=== PATIENT | male | born 1940 | race Caucasian/White ===

== ENCOUNTER 2018-02-08 08:35 | Outpatient (CLI) | payer MEDICARE ==
[~2018-02-08] VITALS: Ht 182.9 cm; Wt 108.2 kg
--- NOTE | ~2018-02-08 | HEMODYNAMI ---
PATIENT:SATYA STROUD MEDICAL RECORD: [id number] : 36 LOCATION:[facility] ADMISSION DATE: 02/08/18 Generatedon:02/08/201814:08 Patient name: SATYA STROUD Patient #: [id number] SSN: : 1940 Date of study: 02/08/2018 Page: Of Hemodynamic Procedure Report Patient Data Patient Demographics Procedure consent was obtained First Name: SATYA Gender: Male Last Name: LUANNE : 1940 Patient #: [id number] Age: 77 year(s) Race: Unknown Additional ID: [id number] Contact details [address]: [address] [place] [address] State: [place] City: [place] Zip code: [address] Past Medical History Allergies: No known allergies Admission Admission Data Admission Date: 02/08/2018 Admission Time: 8:35 Lab Results Lab Result Date: 02/08/2018 Lab Result Time: 0:00 Biochemistry Name Units Result Min Max BUN mg/dl 18 --(---*)-- 7 18 Creatinine mg/dl 1.5 --(----)-* 0.6 1.3 CBC Name Units Result Min Max Hemoglobin g/dl 12.5 *-(----)-- 13.5 17.5 Procedure Procedure Types Cath Procedure Diagnostic Procedure C LHC w/Coronaries w/Grafts Sedation Charges Moderate Sedation up to 15 minutes PCI Procedure AMI/SVG/TOWER CLIMBER PTCA or Stent SVG-BMS/SANDRA Initial Procedure Description Procedure Date Procedure Date: 02/08/2018 Procedure Start Time: 13:41 Procedure End Time: 14:05 Procedure Staff Name Function Carloz Elizabeth RN Nurse Sarwat Salas MD Performing Physician Damir Huerta RT Scrub Sameera Castillo RT Monitor Procedure Data Cath Procedure Fluoroscopy Diagnostic fluoroscopy Total fluoroscopy Time: 7.6 time: 7.6 min min Diagnostic fluoroscopy Total fluoroscopy dose: 789 dose: 789 mGy mGy Contrast Material Contrast Material Type Amount (ml) Isovue 300 138 Entry Location Entry Primary Successful Side Size Upsize Upsize Entry Closure Succes sful Closure Location (Fr) 1 (Fr) 2 (Fr) Remarks Device Remarks Femoral Right 5 Fr 6 Fr Exoseal artery Long Estimated blood loss: 10 ml Diagnostic catheters Device Type Used For End Catheter Placement MULTIPACK Pigtail 5 Fr Procedure catheter MULTIPACK JL 4.0 5Fr Procedure catheter MULTIPACK 3DRC 5Fr Procedure catheter DIAGNOSTIC AR 2 MOD 5 Fr Procedure catheter ([id number]) DIAGNOSTIC AL 1 5Fr Procedure catheter ([id number]) Procedure Complications No complications Procedure Medications Medication Administration Route Dosage Oxygen etCO2 Nasal cannula 2 l/min Heparin Flush Bag added to field 2 bags (1000units/500ml NS) 0.9% NaCl I.V. 100 ml/hr Fentanyl I.V. 50 mcg Versed I.V. 1 mg Fentanyl I.V. 50 mcg Versed I.V. 1 mg Heparin Bolus I.V. 4000 units Integrilin (Bolus I.V. 9.5 ml 2mg/ml) Integrilin (Bolus I.V. 0.5 ml 2mg/ml) Plavix P.O. 600 mg Hemodynamics Rest HGB: 12.5 (g/dl) Heart Rate: 64 (bpm) Snapshots Pre Cath Intra NCS Post Cath Vital Signs Time Heart Resp SPO2 etCO2 NIBP (mmHg) Rhythm Pain Sedation Rate (ipm) (%) (mmHg) Status Level (bpm) 13:25:11 54 17 95 0 165/87(130) NSR 0 (11) 10(A) , No pain 13:29:43 56 17 96 0 161/101(124) NSR 0 (11) 10(A) , No pain 13:34:08 50 17 97 26.9 153/93(138) NSR 0 (11) 10(A) , No pain 13:38:36 52 16 100 26.9 146/88(113) NSR 0 (11) 10(A) , No pain 13:42:58 55 17 99 8.2 146/83(121) NSR 0 (11) 9(A) , No pain 13:47:18 74 16 99 8.9 133/89(103) NSR 0 (11) 9(A) , No pain 13:51:43 77 17 99 0 133/80(100) NSR 0 (11) 9(A) , No pain 13:56:03 62 16 98 0 125/77(107) NSR 0 (11) 9(A) , No pain 14:00:23 77 16 98 21.7 131/84(103) NSR 0 (11) 9(A) , No pain 14:03:50 62 17 98 0 127/80(125) NSR 0 (11) 9(A) , No pain Medications Time Medication Route Dose Verified Delivered Reason Notes Effectiveness by by 13:34:01 Oxygen etCO2 2 Sarwat Ley Per physician Nasal l/min Josue Elizabeth RN cannula 13:34:11 Heparin Flush added 2 Sarwat Ley used for Bag to bags Josue Elizabeth RN procedure (1000units/500ml field NS) 13:34:22 0.9% NaCl I.V. 100 Sarwat Carty Per physician ml/hr Josue Elizabeth RN 13:39:45 Fentanyl I.V. 50 Sarwat Carty for sedation mcg Josue Elizabeth RN 13:39:52 Versed I.V. 1 mg Sarwat Carty for sedation Josue Elizabeth RN 13:49:25 Fentanyl I.V. 50 Sarwat Carty for sedation mcg Josue Elizabeth RN 13:49:28 Versed I.V. 1 mg Sarwat Carty for sedation Josue Elizabeth RN 13:56:46 Heparin Bolus I.V. 4000 Sarwat Carty for units Josue Elizabeth RN anticoagulation 13:56:59 Integrilin I.V. 9.5 Sarwat Carty for (Bolus 2mg/ml) ml Josue Elizabeth RN antiplatelet therapy 13:57:06 Integrilin I.V. 0.5 Sarwat Carty for (Bolus 2mg/ml) ml Josue Elizabeth RN antiplatelet therapy 14:02:30 Plavix P.O. 600 Sarwat Carty for mg Josue Elizabeth RN antiplatelet therapy Procedure Log Time Note 13:00:30 Carloz Elizabeth RN sent for patient. Start room use. 13:06:31 Time tracking: Regular hours (M-F 7:00 - 5:00) 13:06:36 Plan of Care:Hemodynamics will remain stable., Cardiac rhythm will remain stable., Comfort level will be maintained., Respiratory function will remain adequate., Patient/ family verbilizes understanding of procedure., Procedure tolerated without complication., Recovers from procedure without complications.. 13:10:41 H&P Date Dictated: 02/05/2018 Within 30 days and on chart., H&P Addendum completed by physician on day of procedure. (MUST COMPLETE FOR ALL OUTPATIENTS). 13:11:05 Lab Result : Hemoglobin 12.5 g/dl 13:11:05 Lab Result : Creatinine 1.5 mg/dl 13:11:05 Lab Result : BUN 18 mg/dl 13:11:20 Patient allergic to No known allergies 13:17:21 Patient received from Pre/Post Procedure Room to CCL 3 Alert and oriented. Tansferred to table in Supine position. 13:17:23 Correct patient and procedure confirmed by team. 13:17:23 Warm blankets applied, and chao hugger turned on for patient comfort. 13:17:26 ECG and BP/O2 sat monitors applied to patient. 13:17:26 Signed procedure consent form obtained from patient. 13:23:53 Vital chart was started 13:30:14 Baseline sample Acquired. 13:30:15 Rhythm: atrial flutter 13:30:33 Full Disclosure recording started 13:30:34 Pre-op teaching completed and patient verbalized understanding. 13:30:34 Pre-procedure instructions explained to patient. 13:30:36 Family in patients room. 13:30:38 Patient NPO since Midnight. 13:30:39 Is the patient allergic to Iodine/contrast media? No. 13:30:42 Patient diabetic? No. 13:30:46 Previous problem with sedation/anesthesia? No ? 13:30:47 Snore? Yes 13:30:48 Sleep apnea? Yes 13:30:50 Deviated septum? No 13:30:52 Opens mouth fully? Yes 13:30:53 Sticks out tongue? Yes 13:30:55 Airway obstruction? No ? 13:31:00 Dentures? Yes IN TIGHT 13:31:07 Pre procedure: right dorsailis pedis pulse 2+ Normal; easily identifiable; not easily obliterated 13:31:11 Patient pain scale 0/10 ?. 13:32:15 IV patent on arrival in right antecubital with 0.9% NaCl at [facility]. 13:32:18 Lab results completed and on chart. 13:32:23 Right groin area was prepped with chlora-prep and draped in sterile fashion 13:32:27 Use device set Femoral Dx 13:32:28 Bag Decanter (2002S) opened to sterile field. 13:32:28 ACIST Syringe (59604) opened to sterile field. 13:32:29 ACIST Hand Control (71252) opened to sterile field. 13:32:30 ACIST Manifold (26116) opened to sterile field. 13:32:34 Tegaderm 4 x 4 (1626W) opened to sterile field. 13:32:41 Medline Cath Pack ([id number]) opened to sterile field. 13:32:42 DIAGNOSTIC WIRE .035 260cm J wire (360901) opened to sterile field. 13:32:44 DIAGNOSTIC Multipack 5Fr catheter set (YE5948) opened to sterile field. 13:32:46 SHEATH Prelude 5Fr 0.035 (RGG-4O-03-035) opened to sterile field. 13:34:01 Oxygen 2 l/min etCO2 Nasal cannula was administered by Carloz Elizabeth RN; Per physician; 13:34:11 Heparin Flush Bag (1000units/500ml NS) 2 bags added to field was administered by Carloz Elizabeth RN; used for procedure; 13:34:22 0.9% NaCl 100 ml/hr I.V. was administered by Carloz Elizabeth RN; Per physician; 13:38:50 Alarms reviewed by R. N. 13:38:51 Sharps counted by scrub and verified by R.N. 13:38:52 --------ALL STOP TIME OUT------ 13:38:53 Final Timeout: patient, procedure, and site verified with staff and physician. All members of the team are in agreement. 13:38:56 Right groin site verified by team. 13:38:58 Physical assessment completed. ASA score P 2 - A patient with mild systemic disease as per Sarwat Salas MD. 13:39:02 Sedation plan: IV Moderate Sedation Medication:Versed, Fentanyl 13:39:45 Fentanyl 50 mcg I.V. was administered by Carloz Elizabeth RN; for sedation; 13:39:52 Zero performed for pressure channel P1 13:39:52 Versed 1 mg I.V. was administered by Carloz Elizabeth RN; for sedation; 13:41:29 Procedure started. 13:41:32 Local anesthetic to right femoral artery with Lidocaine 2% by Sarwat Salas MD.INITIAL ACCESS ONLY 13:43:02 A 5 Fr sheath was inserted into the Right Femoral artery 13:43:09 A MULTIPACK Pigtail 5 Fr catheter was advanced over the wire and used for Procedure. 13:43:56 LV gram done using SIDHU 13:43:58 Injector settings: Ml/sec: 10, Volume: 20, 13:44:32 EF : 60 % 13:44:35 Catheter exchanged over wire. 13:45:03 A MULTIPACK JL 4.0 5Fr catheter was advanced over the wire and used for Procedure. 13:45:44 LCA angiography performed. 13:45:46 Catheter exchanged over wire. 13:45:55 A MULTIPACK 3DRC 5Fr catheter was advanced over the wire and used for Procedure. 13:47:34 TORRES to LAD angiography performed. 13:47:48 RCA angiography performed. 13:47:56 Catheter exchanged over wire. 13:48:06 A DIAGNOSTIC AR 2 MOD 5 Fr catheter ([id number]) was advanced over the wire and used for Procedure. 13:49:13 SVG to RCA angiography performed. 13:49:25 Fentanyl 50 mcg I.V. was administered by Carloz Elizabeth RN; for sedation; 13:49:28 Versed 1 mg I.V. was administered by Carloz Elizabeth RN; for sedation; 13:49:44 SVG to Diag angiography performed. 13:50:34 Catheter exchanged over wire. 13:50:54 INFLATOR Merit BasixCompak (QV0236) opened to sterile field. 13:50:56 CHOICE PT Extra Support 182cm wire ([id number]) opened to sterile field. 13:50:56 SHEATH 6FR Van (IPY802) opened to sterile field. 13:51:57 GUIDE 6FR AR 2.0 catheter (GU2JK78) opened to sterile field. 13:53:01 SHEATH 6FR ARROW 45cm (CL-47097) opened to sterile field. 13:53:16 Sheath upsized to a 6 Fr Long. 13:53:25 6 Fr AR 2 guide catheter was inserted over the wire 13:55:29 CHOICE ES 182 wire advanced. 13:55:30 Wire advanced across lesion. 13:56:37 Inflate balloon Inflation number: 1 A INTEGRITY RX 3.5 x 15 stent ([id number]) was prepped and advanced across the Aorta Left -> 1st Diag, then inflated to 15 LEON for 0:10 (min:sec). 13:56:46 Heparin Bolus 4000 units I.V. was administered by Carloz Elizabeth RN; for anticoagulation; 13:56:59 Integrilin (Bolus 2mg/ml) 9.5 ml I.V. was administered by Carloz Elizabeth RN; for antiplatelet therapy; 13:57:06 Integrilin (Bolus 2mg/ml) 0.5 ml I.V. was administered by Carloz Elizabeth RN; for antiplatelet therapy; 13:57:35 Stent catheter was removed intact over wire. 13:57:37 Wire removed. 13:57:54 GUIDE EXCHANGED OVER THE WIRE 13:58:18 A DIAGNOSTIC AL 1 5Fr catheter ([id number]) was advanced over the wire and used for Procedure. 13:59:32 SVG to OM angiography performed. 13:59:35 Catheter removed. 13:59:43 EXOSEAL 6Fr (EX600) opened to sterile field. 14:01:00 Sheath removed intact; hemostasis achieved with Exoseal to the Right Femoral artery. 14:01:02 Procedure ended.(Physican Out) 14:01:52 Fluoroscopy time 07.60 minutes. 14:02:02 Fluoroscopy dose: 789 mGy 14:02:02 Flurop Dose total: 789 14:02:08 Contrast amount:Isovue 300 138ml. 14:02:09 Sharps counted by scrub and verified by R.N. 14:02:23 Post-op/insertion site Right Femoral artery dressed using a 4 x 4 and Tegaderm. 14:02:28 Post right femoral artery:stable, soft, clean and dry 14:02:30 Plavix 600 mg P.O. was administered by Carloz Elizabeth RN; for antiplatelet therapy; 14:02:34 Post procedure: right dorsailis pedis pulse 2+ Normal; easily identifiable; not easily obliterated. 14:02:37 Post-procedure physical assessment completed. ASA score P 2 - A patient with mild systemic disease as per Sarwat Salas MD. 14:02:42 Post procedure rhythm: atrial flutter 14:02:45 Estimated blood loss: 10 ml 14:02:46 Post procedure instruction explained to patient.Patient verbalizes understanding. 14:02:47 Patient needs reinforcement of post procedure teaching. 14:03:14 Procedure type changed to Cath procedure, Diagnostic procedure, LHC, LHC w/Coronaries w/Grafts, Sedation Charges, Moderate Sedation up to 15 minutes, PCI procedure, AMI/SVG/TOWER CLIMBER PTCA or Stent, SVG-BMS/SANDRA Initial 14:04:50 Procedure and supply charges have been captured, reviewed, submitted and are correct. 14:04:53 Procedure Complication : No complications 14:04:55 Vital chart was stopped 14:04:56 See physician's report for complete and final results. 14:04:57 Report given to Pre/Post Procedure Room. 14:05:01 Patient transfered to Pre/Post Procedure Room with Bed. 14:05:03 Full Disclosure recording stopped 14:05:03 Procedure ended. 14:05:05 End room use (Document Last) Intervention Summary Intervention Notes Time ActionType Lesion and Equipment Action# Pressure Duration Attributes Used 13:56:37 Inflate Aorta Left INTEGRITY RX 1 15 00:10 balloon -> 1st Diag 3.5 x 15 stent ([id number]) Device Usage Item Name Manufacture Quantity Catalog Number Hospital Part Current M inimal Lot# / Charge Number Stock Stock Serial# Code ACIST Syringe Acist 1 90997 432182 091035 574572 2 0 (25514) Medical Systems Inc Bag Decanter Microtek 1 2001S 715728 07999 508141 5 (2001S) Medical Inc. ACIST Hand Acist 1 11383 177009 536717 700335 5 Control (88258) [employer] Systems Inc ACIST Manifold Acist 1 09650 907715 516658 524074 5 (85611) Medical Systems Inc Tegaderm 4 x 4 3M 1 1626W 316114 384023 281401 5 (1626W) Medline Cath Cardinal 1 [id number] 804891 38286 567679 5 Pack Health ([id number]) DIAGNOSTIC WIRE [facility] 1 352005 170615 930155 723712 3 0 .035 260cm J wire (753712) DIAGNOSTIC Cardinal 1 OC9290 572953 22917 521498 3 0 Multipack 5Fr Health catheter set (QO0620) SHEATH Prelude Merit 1 UZS-3S-52-035 477757 709238 754867 5 5Fr 0.035 Medical (HEQ-4Q-15-035) MULTIPACK Cardinal 1 891692 5 Pigtail 5 Fr Health catheter MULTIPACK JL Cardinal 1 430016 5 4.0 5Fr Health catheter MULTIPACK 3DRC Cardinal 1 765102 5 5Fr catheter Health DIAGNOSTIC AR 2 Cardinal 1 [id number] 797526 880799 068932 2 0 MOD 5 Fr Health catheter (483585L) INFLATOR Merit Merit 1 KX8219 155736 820748 580825 1 5 BasixBosideng Medical (CY4640) SHEATH 6FR Terumo 1 OUL396 090077 840617 442352 4 0 Van (DWY975) CHOICE PT Extra Windsor 1 [id number] 946151 981995 599492 5 Support 182cm Scientific wire ([id number]) GUIDE 6FR AR Medtronic 1 UQ3TC24 774684 16452 177564 1 2.0 catheter (QS1JK26) SHEATH 6FR Teleflex 1 CL-32284 480150 498310 433459 5 ARROW 45cm (CL-00724) INTEGRITY RX Medtronic 1 [id number] 618190 519548 567935 5 [id number] 3.5 x 15 stent ([id number]) DIAGNOSTIC AL 1 Cardinal 1 [id number] 981454 356411 157410 1 5 5Fr catheter Health (585760J) EXOSEAL 6Fr Cardinal 1 EX600 882390 481982 506148 1 0 (EX600) Health Signature Audit [place] Stage Time Signature Unsigned Intra-Procedure 02/08/2018 Sameera Castillo 2:08:02 PM RT(R) Signatures Monitor : Sameera Castillo Signature : RT Date : Time : [facility] [address] [place] [address]
--- NOTE | ~2018-02-08 | OP ---
PATIENT NAME: SATYA STROUD MEDICAL RECORD: [id number] :36 LOCATION:[facility] ADMISSION DATE: SURGEON: ROMEO KAT MD DATE OF OPERATION: 02/08/2018 PROCEDURES: 1. PTCA stent vein graft to LAD diagonal. 2. Left heart catheterization. 3. Selective coronary angiography. 4. Vein graft angiography. 5. TORRES angiography. 6. Left ventriculogram. INDICATION: Angina and coronary artery disease. PROCEDURE IN DETAIL: After informed consent was obtained, after a detailed description of risks, benefits as well as alternative therapies, the patient elected to proceed with angiogram and angioplasty. The right femoral area was prepped and draped in normal sterile fashion. Right femoral artery was cannulated via modified Seldinger technique with placement of 6-Slovak sheath. All catheters exchanged through this sheath. FINDINGS: The left ventriculogram was performed in standard 30-degree SIDHU view, reveals good cardiac wall motion throughout all segments. Overall ejection fraction estimated 60%. SELECTIVE CORONARY ANGIOGRAPHY: 1. Left main is closed. 2. Right coronary artery is closed. 3. TORRES to the LAD is patent. Distal LAD is patent, but diffusely diseased. 4. Vein graft to LAD diagonal is patent with 80% stenosis proximally in the shaft. 5. Vein graft to the left circumflex is patent. Distal circumflex diffusely diseased, but patent. 6. Vein graft to the right coronary is patent. Distal right coronary is patent. PTCA STENT OF THE VEIN GRAFT TO THE LAD DIAGONAL: The stent used was a 3.5 x 15-mm Integrity. Result was 0% residual stenosis. OVERALL IMPRESSION: Successful PTCA stent of the vein graft to the LAD diagonal going from 80% initial stenosis to 0% residual. TRANSINT:[id number] Voice Confirmation ID: [id number] DOCUMENT ID: [id number] ROMEO KAT MD at 2001 CC: [id number] DICTATION DATE: 02/08/18 1405 ELECTRICIAN OFFICE: 02/08/18 1415 DEP CLI 02/08/18 [place] [id number]
[2018-02-08] MEDS ORDERED: LYRICA75 MG PO (10:20)
[2018-02-08] MEDS ORDERED: FLOMAX0.4 MG PO (10:20)
[2018-02-08] MEDS ORDERED: K-DUR20 MEQ PO (10:21)
[2018-02-08] MEDS ORDERED: FUROSEMIDE20 MG PO (10:21)
[2018-02-08] MEDS ORDERED: CARTIA XT180 MG PO (10:22)
[2018-02-08] MEDS ORDERED: BETAPACE 80 MG80 MG PO (10:22)
[2018-02-08] MEDS ORDERED: CYMBALTA60 MG PO (10:23)
[2018-02-08] MEDS ORDERED: PROTONIX40 MG PO (10:23)
[2018-02-08] MEDS ORDERED: ZOCOR10 MG PO (10:23)
[2018-02-08] MEDS ORDERED: ABILIFY10 MG (10:24)
[2018-02-08] MEDS ORDERED: DIOVAN160 MG (10:25)
[2018-02-08] MEDS ORDERED: PROSCAR5 MG PO (10:25)
[2018-02-08 10:33] VITALS: BP 136/64; Ht 182.9 cm; Wt 108.2 kg
[2018-02-08 10:42] LABS: BASOPHILS 0.3 % (0-2); EOSINOPHILS 4.4 % (0-7); HEMOGLOBIN 12.5 g/dL (13.5-17.5); IMMATURE GRANULOCYTES 0.6 % (0-5); LYMPHOCYTES 48.1 % (15-50); MCH 27.7 pg (26.0-34.0); MCHC 32.1 g/dL (31.0-37.0); MCV 86.5 fL (80.0-100.0); MEAN PLATELET VOLUME 8.8 fL (7.4-10.4); MONOCYTES 8.5 % (2-11); NEUTROPHILS 38.1 % (40-80); PLATELET COUNT 178 10x3/uL (130-400); RBC 4.51 10x6/uL (4.20-6.10)
[2018-02-08 11:01] LABS: ANION GAP 11.9 mmol/L (8-16); CALCIUM 9.3 mg/dL (8.5-10.1); CARBON DIOXIDE 28.8 mmol/L (21.0-32.0); CREATININE - SERUM 1.5 mg/dL (0.6-1.3); POTASSIUM - SERUM 4.7 mmol/L (3.5-5.1)
== END 2018-02-08 18:15 | disposition home or self-care (01) ==
LOC: D.CATH 08:35
PROVIDERS: Internal Medicine Interventional Cardiology
DX: I25.119 Atherosclerotic heart disease of native coronary artery with unspecified angina pectoris (principal); I25.719 Atherosclerosis of autologous vein coronary artery bypass graft(s) with unspecified angina pectoris; Z01.812 Encounter for preprocedural laboratory examination

== ENCOUNTER 2018-09-20 08:48 | Outpatient (CLI) | payer MEDICARE ==
[~2018-09-20] VITALS: Ht 182.9 cm; Wt 112.7 kg
--- NOTE | ~2018-09-20 | HEMODYNAMI ---
PATIENT:SATYA STROUD MEDICAL RECORD: [id number] : 36 LOCATION:[facility] ADMISSION DATE: 09/20/18 Generatedon:09/20/201812:04 Patient name: SATYA STROUD Patient #: [id number] SSN: : 1940 Date of study: 09/20/2018 Page: Of Hemodynamic Procedure Report Patient Data Patient Demographics Procedure consent was obtained First Name: SATYA Gender: Male Last Name: LUANNE : 1940 Patient #: [id number] Age: 78 year(s) Race: Unknown Additional ID: [id number] Contact details [address]: [address] [place] [address] State: [place] City: [place] Zip code: [address] Past Medical History Allergies: No known allergies Admission Admission Data Admission Date: 09/20/2018 Admission Time: 8:48 Height (in.): 72 BSA: 2.34 (m2) Height (cm.): 182.88 BMI: 33.77 (kg/m2) Weight (lbs.): 249 Weight (kg.): 112.94 Lab Results Lab Result Date: 09/20/2018 Lab Result Time: 0:00 Biochemistry Name Units Result Min Max BUN mg/dl 24 --(----)-* 7 18 Creatinine mg/dl 1.8 --(----)-* 0.6 1.3 CBC Name Units Result Min Max Hemoglobin g/dl 11.7 *-(----)-- 13.5 17.5 Procedure Procedure Types Cath Procedure Diagnostic Procedure LHC LHC w/Coronaries w/Grafts Peripheral Cath Diagnostic Procedure Truck Service Manager Peripheral Procedures Cyhhv-Hvqgqxn-Ztp-Off Procedure Description Procedure Date Procedure Date: 09/20/2018 Procedure Start Time: 11:47 Procedure End Time: 12:02 Procedure Staff Name Function Sarwat Salas MD Performing Physician Flynn Soria RT Axle And Frame Mechanic Cindy Garg RT Monitor Stacie Mcguire RN Nurse Ashley Wlesh RT Scrub Erick Pickard RT Scrub Procedure Data Cath Procedure Fluoroscopy Diagnostic fluoroscopy Total fluoroscopy Time: 5.1 time: 5.1 min min Diagnostic fluoroscopy Total fluoroscopy dose: dose: 1237 mGy 1237 mGy Contrast Material Contrast Material Type Amount (ml) Isovue 300 107 Entry Location Entry Primary Successful Side Size Upsize Upsize Entry Closure Succes sful Closure Location (Fr) 1 (Fr) 2 (Fr) Remarks Device Remarks Femoral Right 5 Fr Exoseal artery Estimated blood loss: 10 ml Diagnostic catheters Device Type Used For End Catheter Placement MULTIPACK Pigtail 5 Fr Ventriculography catheter MULTIPACK JL 4.0 5Fr Procedure catheter MULTIPACK 3DRC 5Fr Procedure catheter DIAGNOSTIC AR MOD 5Fr Procedure Catheter ([id number]) Procedure Complications No complications Procedure Medications Medication Administration Route Dosage Oxygen etCO2 Nasal cannula 2 l/min Lidocaine 2% added to field 20 Heparin Flush Bag added to field 2 bags (1000units/500ml NS) 0.9% NaCl I.V. 100 ml/hr Versed I.V. 1 mg Fentanyl I.V. 50 mcg 0.9% NaCl I.V. 200 ml/hr Versed I.V. 1 mg Fentanyl I.V. 50 mcg Hemodynamics Rest BSA: 2.34 (m2) HGB: 11.7 (g/dl) O2 Consumption: Estimated: 270.14 (ml/min) O2 Co nsumption indexed: Estimated:115.44 (ml/min/m) Heart Rate: 73 (bpm) Pressure Samples Time Site Value (mmHg) Purpose Heart Use Rate(bpm) 11:48 LV 95/11,18 Snapshot 77 Gradients Valve Time Site Site Mean SEP/DFP Peak To Heart Use 1 2 (mmHg) (sec/min) Peak Rate (mmHg) (bpm) Aortic 11:49 LV AO 73 Snapshots Pre Cath Intra NCS Post Cath Vital Signs Time Heart Resp SPO2 etCO2 NIBP (mmHg) Rhythm Pain Sedation Rate (ipm) (%) (mmHg) Status Level (bpm) 11:30:34 63 20 96 32.1 137/94(121) A-Flutter 0 (11) 10(A) , No pain 11:34:54 65 19 97 32.9 141/80(115) A-Flutter 0 (11) 10(A) , No pain 11:39:14 69 15 96 7.6 138/82(107) A-Flutter 0 (11) 10(A) , No pain 11:43:34 76 14 96 32.9 130/79(113) A-Flutter 0 (11) 10(A) , No pain 11:47:42 73 14 94 27.5 122/74(98) A-Flutter 0 (11) 10(A) , No pain 11:51:54 82 12 96 20 133/85(99) A-Flutter 0 (11) 9(A) , No pain 11:56:10 86 14 95 16.1 132/86(99) A-Flutter 0 (11) 9(A) , No pain 12:00:26 81 14 95 0 132/80(108) A-Flutter 0 (11) 10(A) , No pain Medications Time Medication Route Dose Verified Delivered Reason Notes Eff ectiveness by by 11:28:33 Oxygen etCO2 2 Sarwat Buffie used for Nasal l/min Josue Mcguire RN procedure cannula 11:29:49 Lidocaine 2% added 20ml Sarwat Sarwat for local to vial Josue Salas MD anesthetic field 11:29:55 Heparin Flush added 2 Sarwat Sarwat used for Bag to bags Josue Salas MD procedure (1000units/500ml field NS) 11:30:19 0.9% NaCl I.V. 100 Sarwat Sarwat used for ml/hr Josue Salas MD procedure 11:45:28 Versed I.V. 1 mg Sarwat Buffie for Josue Mcguire RN sedation 11:45:33 Fentanyl I.V. 50 Sarwatsergio Sanfordie for mcg Josue Mcguire RN sedation 11:50:42 0.9% NaCl I.V. 200 Sarwat Buffie used for ml/hr Josue Mcguire RN procedure 11:56:12 Versed I.V. 1 mg Sarwat Buffie for Josue Mcguire RN sedation 11:56:15 Fentanyl I.V. 50 Sarwat Sanfordie for mcg Josue Mcguire RN sedation Procedure Log Time Note 11:27:36 Patient Height : 72 inches 11:27:40 Patient Weight : 249 lbs 11:28:16 Lab Result : BUN 24 mg/dl 11:28:17 Lab Result : Hemoglobin 11.7 g/dl 11:28:17 Lab Result : Creatinine 1.8 mg/dl 11:28:33 Oxygen 2 l/min etCO2 Nasal cannula was administered by Stacie Mcguire RN; used for procedure; 11:28:52 Diagnostic Cath status Elective 11::55 Flynn Soria RT(R) sent for patient. Start room use. 11:28:56 Time tracking: Regular hours (M-F 7:00 - 5:00) 11:29:01 Plan of Care:Hemodynamics will remain stable., Cardiac rhythm will remain stable., Comfort level will be maintained., Respiratory function will remain adequate., Patient/ family verbilizes understanding of procedure., Procedure tolerated without complication., Recovers from procedure without complications.. 11:29:18 Patient received from Pre/Post Procedure Room to CCL 2 Alert and oriented. Tansferred to table in Supine position. 11:29:19 Warm blankets applied, and chao hugger turned on for patient comfort. 11:29:20 Correct patient and procedure confirmed by team. 11:29:21 Signed procedure consent form obtained from patient. 11:29:22 ECG and BP/O2 sat monitors applied to patient. 11:29:23 Vital chart was started 11:29:24 Baseline sample Acquired. 11:29:26 Baseline sample Acquired. 11:29:32 Rhythm: atrial flutter 11:29:39 Full Disclosure recording started 11:29:47 H&P Date Dictated: 09/18/2018 Within 30 days and on chart., H&P Addendum completed by physician on day of procedure. (MUST COMPLETE FOR ALL OUTPATIENTS). 11:29:49 Lidocaine 2% 20ml vial added to field was administered by Sarwat Salas MD; for local anesthetic; 11:29:50 Pre-procedure instructions explained to patient. 11:29:55 Heparin Flush Bag (1000units/500ml NS) 2 bags added to field was administered by Sarwat Salas MD; used for procedure; 11:29:55 Family in patients room. 11:29:57 Patient NPO since Midnight. 11:30:06 Patient allergic to No known allergies 11:30:09 Is the patient allergic to Iodine/contrast media? No. 11:30:10 Was the patient premedicated? Yes 11:30:12 Is patient on blood thinner?No 11:30:13 Patient diabetic? No. 11:30:19 0.9% NaCl 100 ml/hr I.V. was administered by Sarwat Salas MD; used for procedure; 11:30:26 If diabetic: On Metformin? No 11:30:51 Snore? Yes 11:30:58 Sleep apnea? Yes 11:31:18 IV patent on arrival in left forearm with 0.9% NaCl at [facility]. 11:31:22 Lab results completed and on chart. 11:31:26 Right groin area was prepped with chlora-prep and draped in sterile fashion 11:31:27 Alarms reviewed by R. N. 11:31:27 Sharps counted by scrub and verified by R.N. 11:31:28 Physician paged 11:31:32 Use device set Femoral Dx 11:31:34 ACIST Syringe (77871) opened to sterile field. 11:31:35 Bag Decanter (2002S) opened to sterile field. 11:31:35 Medline Cath Pack ([id number]) opened to sterile field. 11:31:36 DIAGNOSTIC WIRE .035 260cm J wire (053033) opened to sterile field. 11:31:37 ACIST Hand Control (89799) opened to sterile field. 11:31:37 ACIST Manifold (00489) opened to sterile field. 11:31:38 DIAGNOSTIC Multipack 5Fr catheter set (AY6418) opened to sterile field. 11:31:40 SHEATH 5FR Aurora (MDD407) opened to sterile field. 11:41:02 Baseline sample Acquired. 11:41:11 Baseline sample Acquired. 11:42:07 Physician arrived 11:42:08 --------ALL STOP TIME OUT------ 11:42:08 Final Timeout: patient, procedure, and site verified with staff and physician. All members of the team are in agreement. 11:42:11 Right groin site verified by team. 11:42:55 Physical assessment completed. ASA score P 2 - A patient with mild systemic disease as per Sarwat Salas MD. 11:43:00 Sedation plan: IV Moderate Sedation Medication:Versed, Fentanyl 11:45:28 Versed 1 mg I.V. was administered by Stacie Mcguire RN; for sedation; 11:45:33 Fentanyl 50 mcg I.V. was administered by Stacie Mcguire RN; for sedation; 11:46:46 Zero performed for pressure channel P1 11:46:50 Zero performed for pressure channel P1 11:47:04 Procedure started. 11:47:08 Local anesthetic to right femoral artery with Lidocaine 2% by Sarwat Salas MD.INITIAL ACCESS ONLY 11:47:24 A 5 Fr sheath was inserted into the Right Femoral artery 11:47:29 J wire advanced. 11:48:24 A MULTIPACK Pigtail 5 Fr catheter was advanced over the wire and used for Ventriculography. 11:49:08 EF : 40 % 11:49:31 Abdominal angiogram w/ runoff was performed. 11:49:35 Left leg runoff performed. 11:49:37 Right leg runoff performed. 11:50:28 Catheter removed. 11:50:42 0.9% NaCl 200 ml/hr I.V. was administered by Stacie Mcguire RN; used for procedure; 11:53:17 A MULTIPACK JL 4.0 5Fr catheter was advanced over the wire and used for Procedure. 11:53:40 LCA angiography performed. 11:53:42 Catheter removed. 11:53:55 A MULTIPACK 3DRC 5Fr catheter was advanced over the wire and used for Procedure. 11:54:58 TORRES to LAD angiography performed. 11:55:45 RCA angiography performed. 11:56:12 Versed 1 mg I.V. was administered by Stacie Mcguire RN; for sedation; 11:56:15 Fentanyl 50 mcg I.V. was administered by Stacie Mcguire RN; for sedation; 11:56:18 Catheter removed. 11:56:25 A DIAGNOSTIC AR MOD 5Fr Catheter ([id number]) was advanced over the wire and used for Procedure. 11:56:29 RCA angiography performed. 11:59:24 SVG to Circ angiography performed. 11:59:29 SVG to RCA angiography performed. 11:59:51 Catheter removed. 11:59:53 EXOSEAL 5Fr (EX500) opened to sterile field. 12:00:05 Sheath removed intact; hemostasis achieved with Exoseal to the Right Femoral artery. 12:00:30 Procedure ended.(Physican Out) 12:00:41 Fluoroscopy time 05.10 minutes. 12:00:46 Fluoroscopy dose: 1237 mGy 12:00:46 Flurop Dose total: 1237 12:00:51 Contrast amount:Isovue 300 107ml. 12:00:54 Sharps counted by scrub and verified by R.N. 12:00:55 Insertion/operative site no bleeding no hematoma. 12:01:03 Post-op/insertion site Right Femoral artery dressed using a 4 x 4 and Tegaderm. 12:01:08 Post right femoral artery:stable 12:01:12 Post-procedure physical assessment completed. ASA score P 4 - A patient with severe systemic disease that is a constant threat to life as per Sarwat Salas MD. 12:01:27 Post procedure rhythm: unchanged. 12:01:29 Estimated blood loss: 10 ml 12:01:31 Post procedure instruction explained to patient.Patient verbalizes understanding. 12:01:50 Procedure type changed to Cath procedure, Diagnostic procedure, LHC, LHC w/Coronaries w/Grafts, Peripheral Cath Diagnostic Procedure, Truck Service Manager Peripheral Procedures, Eblra-Fwmorkd-Idi-Off 12:01:52 Procedure and supply charges have been captured, reviewed, submitted and are correct. 12:02:11 Procedure Complication : No complications 12:02:14 Vital chart was stopped 12:02:15 See physician's report for complete and final results. 12:02:17 Report given to Pre/Post Procedure Room. 12:02:21 Patient transfered to Pre/Post Procedure Room with Stretcher. 12:02:23 Procedure ended. 12:02:23 Full Disclosure recording stopped Device Usage Item Name Manufacture Quantity Catalog Hospital Part Current Minimal L ot# / Number Charge Number Stock Stock Serial# Code ACIST Acist 1 41167 268046 139674 592645 20 Syringe Medical (55136) Systems Inc Bag Microtek 1 976291 17976 989770 5 Decanter Medical Inc. () Medline Medline 1 [id number] 650035 68260 429589 5 Cath Pack ([id number]) DIAGNOSTIC [facility] 1 263095 338579 485316 435729 30 WIRE .035 260cm J wire (717270) ACIST Hand Acist 1 51771 682574 613376 661446 5 Control Medical (73322) Systems Inc ACIST Acist 1 64522 254571 952746 632955 5 Manifold Medical (58512) Systems Inc DIAGNOSTIC Cardinal 1 [id number] 813798 03207 517778 30 Simplilearn 5Fr catheter set (RB8167) SHEATH 5FR Terumo 1 OIC744 583528 492585 776798 5 Aurora (YUM412) MULTIPACK Cardinal 1 275868 5 Pigtail 5 Health Fr catheter MULTIPACK Cardinal 1 486449 5 JL 4.0 5Fr Health catheter MULTIPACK Cardinal 1 027525 5 3DRC 5Fr Health catheter DIAGNOSTIC Cardinal 1 [id number] 291590 745052 023525 15 AR MOD 5Fr Health Catheter (302191O) EXOSEAL 5Fr Cardinal 1 EX500 994578 645598 448713 10 (EX500) Health Signature Audit [place] Stage Time Signature Unsigned Intra-Procedure 09/20/2018 Cindy Garg 12:04:08 PM RT(R) Signatures Monitor : Cindy Garg Signature : RT Date : Time : [address] [address]
[~2018-09-20 08:48] MED LIST: ABILIFY10 MG; BETAPACE 80 MG80 MG PO; CARTIA XT180 MG PO; CYMBALTA60 MG PO; DIOVAN160 MG PO; FLOMAX0.4 MG PO; FUROSEMIDE20 MG PO; K-DUR20 MEQ PO; LYRICA75 MG PO; PROSCAR5 MG PO; PROTONIX40 MG PO; ZOCOR10 MG PO
[2018-09-20] MEDS ORDERED: NEURONTIN 300300 MG PO (09:34)
[2018-09-20] MEDS ORDERED: ATARAX 25 MG TA25 MG PO (09:34)
[2018-09-20] MEDS ORDERED: ALDACTONE25 MG PO (09:35)
[2018-09-20] MEDS ORDERED: CRESTOR40 MG PO (09:35)
[2018-09-20 09:52] VITALS: BP 121/70; Ht 182.9 cm; Wt 112.7 kg
[2018-09-20 10:26] LABS: BASOPHILS 0.4 % (0-2); EOSINOPHILS 3.9 % (0-7); HEMATOCRIT 36.4 % (42.0-54.0); HEMOGLOBIN 11.7 g/dL (13.5-17.5); IMMATURE GRANULOCYTES 2.2 % (0-5); LYMPHOCYTES 43.7 % (15-50); MCH 26.7 pg (26.0-34.0); MCHC 32.1 g/dL (31.0-37.0); MCV 82.9 fL (80.0-100.0); MEAN PLATELET VOLUME 8.2 fL (7.4-10.4); MONOCYTES 10.9 % (2-11); NEUTROPHILS 38.9 % (40-80); PLATELET COUNT 261 10x3/uL (130-400); RBC 4.39 10x6/uL (4.20-6.10); RDW 17.6 % (11.5-14.5); WBC 12.4 10x3/uL (4.8-10.8)
[2018-09-20 10:36] LABS: ANION GAP 15.6 mmol/L (8-16); CALCIUM 9.1 mg/dL (8.5-10.1); CARBON DIOXIDE 26.8 mmol/L (21.0-32.0); CREATININE - SERUM 1.8 mg/dL (0.6-1.3); POTASSIUM - SERUM 4.4 mmol/L (3.5-5.1)
[2018-09-20] MEDS ORDERED: XARELTO20 MG PO (12:14)
--- NOTE | 2018-09-20 12:42 | NUR ---
PT. SLEEPING. AROUSES TO VOICE. ALERT X4. DENIES PAIN. VSS. HR 85. BP 114/72. O2 SAT 95% ON 3LNC. RIGHT GROIN C/D/I. NO BLEEDING. NO HEMATOMA. ANDREW. LE FAINT PULSES. DOPPLERED. PULSES MARKED. TRYING TO VOID IN URINAL
--- NOTE | 2018-09-20 13:13 | NUR ---
PT. AWAKE AND ALERT. DENIES CP. C/O BACK PAIN. ASSISTED X2 NURSES AND TURNED WITH PILLOW BENEATH BACK. PT. WANTING TO GET OOB. EXPLAINED MULTIPLE TIMES HE NEEDS TO LIE FLAT POST PROCEDURE. FAMILY AT BS. VSS. RIGHT GROIN C/D/I. NO BLEEDING. NO HEMATOMA
--- NOTE | 2018-09-20 13:28 | NUR ---
FAMILY AT . [facility].A FLUTTER ON MONITOR. RIGHT GROIN C/D/I. 1 + PEDAL PULSES
--- NOTE | 2018-09-20 14:00 | NUR ---
HOB INCREASED. PT TOLERATING COFFEE. NO N/V
--- NOTE | 2018-09-20 14:19 | NUR ---
[PIV. REMOVED. DISCHARGE INSTRUCTIONS REVIEWED WITH PT. AND FAMILY. MED LIST REVIEWED. QUESTIONS ANSWERED. RIGHT GROIN C/D/I.
--- NOTE | 2018-09-20 14:31 | NUR ---
PT. PLACED IN . DISCHARGED HOME
--- NOTE | 2018-09-24 10:45 | OP ---
PATIENT NAME: SATYA STROUD MEDICAL RECORD: [id number] :36 LOCATION:D.[facility] ADMISSION DATE: SURGEON: ROMEO KAT MD DATE OF OPERATION: 09/20/2018 PROCEDURE: 1. Aortofemoral runoff. 2. Abdominal aortography. INDICATION: Claudication and peripheral vascular disease. PROCEDURE IN DETAIL: After informed consent was obtained and after a detailed description of risks, benefits as well as alternative therapies, the patient elected to proceed with angiogram and aortofemoral runoff. The right femoral area had a preexisting sheath from cardiac intervention. All catheters exchanged through this sheath. FINDINGS: Abdominal aortography was performed. The catheter was pulled down for aortofemoral runoff. Abdominal aortography reveals no significant abdominal aortic disease, no dissection or aneurysm formation. No renal artery stenosis. RIGHT LEG: A. Iliac: The common internal and external iliacs are tortuous, calcified, but no flow-limiting stenosis. B. Femoral system: The common and deep femoral are widely patent. Superficial femoral has moderate to severe calcification and diffuse disease. There is a total occlusion in the distal aspect of the superficial femoral. This reconstitutes in the popliteal. The popliteal is patent. It appears that there is severe diffuse disease of the infrapopliteal vessels, but preserved runoff to the posterior tibial and peroneal. LEFT LEG: A. Iliac: The common internal and external iliacs are tortuous, calcified, but no flow-limiting stenosis. B. Femoral system: The common and deep femoral are widely patent. Superficial femoral has moderate to severe calcification and diffuse disease. There is a total occlusion in the distal aspect of the superficial femoral. This reconstitutes in the popliteal. The popliteal is patent. It appears that there is severe diffuse disease of the infrapopliteal vessels, but preserved runoff to the posterior tibial and peroneal. OVERALL IMPRESSION: Severe diffuse disease of the SFA disease bilaterally as well as infrapopliteal structures bilaterally. Medical management of peripheral vascular disease is warranted. TRANSINT:[id number] Voice Confirmation ID: [id number] DOCUMENT ID: [id number] OPERATIVE REPORT [id number] LUANNESATYA HERRMANN ROMEO KAT MD at 1045 CC: [id number] DICTATION DATE: 09/20/18 1206 INSURANCE COUNSEL: 09/20/18 1257 DEP CLI 09/20/18 [facility] [address] [place] [address]
--- NOTE | 2018-09-24 10:45 | OP ---
PATIENT NAME: SATYA STROUD MEDICAL RECORD: [id number] :38 LOCATION:D.CAT ADMISSION DATE: SURGEON: ROMEO KAT MD DATE OF OPERATION: 09/20/2018 PROCEDURES: 1. Left heart catheterization. 2. Selective coronary angiography. 3. Vein graft angiography. 4. TORRES angiography. 5. Left ventriculogram. INDICATION: Angina and coronary artery disease. PROCEDURE IN DETAIL: After informed consent was obtained and after a detailed description of the risks, benefits as well as alternative therapies, the patient elected to proceed with angiogram and heart catheterization. The right femoral area was prepped and draped in normal sterile fashion. Right femoral artery was cannulated via modified Seldinger technique with placement of 6-Yoruba sheath. All catheters exchanged through this sheath. FINDINGS: The left ventriculogram was performed in standard 30-degree SIDHU view, reveals mild global hypokinesis, ejection fraction 40%. SELECTIVE CORONARY ANGIOGRAPHY: 1. Left main is with no significant angiographic disease. 2. Left anterior descending is closed. 3. Left circumflex is closed. 4. Right coronary artery is closed. 5. TORRES to the LAD is patent. Distal LAD is diffusely diseased and widely patent. 6. The vein graft to the circumflex is patent. Distal circumflex is diffusely diseased, but widely patent. 7. The right coronary artery vein graft is widely patent. Distal right coronary artery is widely patent. OVERALL IMPRESSION: Wide patency of all grafts. Center medical management and treatment of the atrial fibrillation. TRANSINT:[id number] Voice Confirmation ID: [id number] DOCUMENT ID: [id number] ROMEO KAT MD at 1045 CC: [id number] DICTATION DATE: 09/20/18 1206 RENEWAL SPECIALIST: 09/20/18 1256 DEP CLI 09/20/18 [place] [id number]
== END 2018-09-20 14:30 ==
LOC: D.CATH 08:48
PROVIDERS: Internal Medicine Interventional Cardiology
DX: I25.119 Atherosclerotic heart disease of native coronary artery with unspecified angina pectoris (principal); I48.91 Unspecified atrial fibrillation; I70.213 Atherosclerosis of native arteries of extremities with intermittent claudication, bilateral legs; Z01.812 Encounter for preprocedural laboratory examination

== ENCOUNTER 2018-10-03 14:24 | Observation (INO) | payer MEDICARE ==
[~2018-10-03] VITALS: Ht 182.9 cm; Wt 112.7 kg
[~2018-10-03 14:24] MED LIST changes: +ALDACTONE25 MG PO; +ATARAX 25 MG TA25 MG PO; +CRESTOR40 MG PO; +NEURONTIN 300300 MG PO; +XARELTO20 MG PO
--- NOTE | 2018-10-03 14:49 | NUR ---
TRANSFERED FROM ADMISSIONS BY W/Diane PENA TO ROOM. FAMILY AT BS. CALL LIGHT IN REACH. WILL CONT. PLAN OF CARE.
[2018-10-03] MEDS ORDERED: ZOCOR10 MG PO (15:10)
[2018-10-03 15:14] VITALS: BP 104/51; Ht 182.9 cm; Wt 112.7 kg
--- NOTE | 2018-10-03 15:51 | NUR ---
IV STARTED TO RIGHT ARM WITH 20 GAUGE CATH X 1 STICK AND FLUSHED WITH NS. LINE IS PATENT.
--- NOTE | 2018-10-03 19:30 | NUR ---
RESUMING PATIENT CARE. PATIENT RESTING COMFORTABLY IN BED. RESPIRATIONS ARE EVEN AND UNLABORED. NO S/S OF DISTRESS. NO C/O PAIN. CALL LIGHTWITHIN REACH. WILL CPOC.
[2018-10-03 20:00] VITALS: BP 108/50
[2018-10-04 00:50] VITALS: BP 109/55
[2018-10-04 05:35] VITALS: BP 137/70
[2018-10-04 08:17] VITALS: BP 125/54
--- NOTE | 2018-10-04 09:46 | MORECARE ---
CASE MANAGEMENT DISCHARGE SUMMARY PATIENT: SATYA STROUD UNIT: [id number] ADM DATE: 10/03/18 AGE: 78 : 38 SEX: M ROOM/BED: D.[facility] AUTHOR: DC LI PHYSICIAN: REFERRING PHYSICIAN: ROMEO KAT MD DATE OF SERVICE: 10/04/18 Discharge Plan Patient Name[facility]OU[facility] [facility] 1940 Planned Disposition: Home Anticipated Discharge Date: 10/04/18 Discharge Date: Expected LOS: 1 Initial Reviewer: [email or web address] Initial Review Date: 10/04/2018 Generated: 10/04/18 10:45 am Patient Name: SATYA STROUD Page [phone] at 0946 All edits/amendments must be made on the electronic document DICTATION DATE: 10/04/18944 BELLMAN: [place] 10/04/18944 RPT#: [id number] DC DATE: STATUS: ADM IN [facility] [address] [place] [address] END OF REPORT
--- NOTE | 2018-10-04 11:09 | NUR ---
IV AND TELEMETRY DCD. DC PLANS GIVEN. UNDERSTANDING VOICED. ESCORTED TO CAR BY W/C.
== END 2018-10-04 11:10 | disposition home or self-care (01) ==
LOC: D.M2 14:24 → OBSVTIME 14:24 → D.M2 10-04 11:10
PROVIDERS: ADMIT Internal Medicine Interventional Cardiology
DX: I48.91 Unspecified atrial fibrillation (principal); I25.10 Atherosclerotic heart disease of native coronary artery without angina pectoris

== ENCOUNTER 2018-10-17 09:46 | Outpatient (CLI) | payer MEDICARE ==
[~2018-10-17] VITALS: Ht 182.9 cm; Wt 108.6 kg
--- NOTE | ~2018-10-17 | HEMODYNAMI ---
PATIENT:SATYA STROUD MEDICAL RECORD: [id number] : 36 LOCATION:[facility] ADMISSION DATE: 10/17/18 Generatedon:10/17/201812:18 Patient name: SATYA STROUD Patient #: [id number] SSN: : 1940 Date of study: 10/17/2018 Page: Of Hemodynamic Procedure Report Patient Data Patient Demographics Procedure consent was obtained First Name: SATYA Gender: Male Last Name: LUANNE : 1940 Patient #: [id number] Age: 78 year(s) Race: Unknown Additional ID: [id number] Contact details Address: [address] [place] [address] State: [place] City: [place] Zip code: [address] Past Medical History Allergies: No known allergies Admission Admission Data Admission Date: 10/17/2018 Admission Time: 9:46 Procedure Procedure Types Cath Procedure Diagnostic Procedure Cardioversion External Procedure Description Procedure Date Procedure Date: 10/17/2018 Procedure Start Time: 12:08 Procedure End Time: 12:18 Procedure Staff Name Function Sarwat Salas MD Performing Physician Damir Huerta RT Monitor Laurie Madden RN Nurse Juan Aguiar CRNA Additional personnel Procedure Data Cath Procedure Fluoroscopy Diagnostic fluoroscopy Total fluoroscopy Time: 0 time: 0 min min Diagnostic fluoroscopy Total fluoroscopy dose: 0 dose: 0 mGy mGy Contrast Material Contrast Material Type Amount (ml) Isovue 300 0 Estimated blood loss: 0 ml Procedure Complications No complications Procedure Medications Medication Administration Route Dosage 0.9% NaCl I.V. 100 ml/hr Oxygen etCO2 Nasal cannula 2 l/min Refer to Anesthesia Notes for Sedation Medications Hemodynamics Rest Pre Cath Intra NCS Post Cath Vital Signs Time Heart Resp SPO2 etCO2 NIBP (mmHg) Rhythm Pain Sedation Rate (ipm) (%) (mmHg) Status Level (bpm) 12:06:27 68 18 97 0 110/74(101) NSR 0 (11) 10(A) , No pain 12:10:37 54 14 96 0 127/70(102) NSR 0 (11) 9(A) , No pain 12:14:26 55 12 99 0 111/69(92) NSR 0 (11) 10(A) , No pain Medications Time Medication Route Dose Verified Delivered Reason Notes Effectiv eness by by 12:06:08 0.9% NaCl I.V. 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 Start room use. 11:46:13 Time tracking: Regular hours (M-F 7:00 - 5:00) 11:46:17 Plan of Care:Hemodynamics will remain stable., Cardiac rhythm will remain stable., Comfort level will be maintained., Respiratory function will remain adequate., Patient/ family verbilizes understanding of procedure., Procedure tolerated without complication., Recovers from procedure without complications.. 11:56:13 Patient arrived from Pre/Post Procedure Room to CCL 3. Patient remains on bed/stretcher for procedure. 11:56:14 Warm blankets applied, and chao hugger turned on for patient comfort. 11:56:15 Correct patient and procedure confirmed by team. 11:56:16 Signed procedure consent form obtained from patient. 11:56:17 ECG and BP/O2 sat monitors applied to patient. 12:00:28 Quick Combo opened to sterile field. 12:00:43 Juan Aguiar CRNA present and monitoring patient for TIVA. 12:05:07 Vital chart was started 12:05:55 Rhythm: atrial fibrillation 12:06:08 0.9% NaCl 100 ml/hr I.V. was administered by Laurie Madden RN; used for procedure; 12:06:09 H&P Date Dictated: 10/15/2018 Within 30 days and on chart., H&P Addendum completed by physician on day of procedure. (MUST COMPLETE FOR ALL OUTPATIENTS). 12:06:10 Pre-procedure instructions explained to patient. 12:06:10 Pre-op teaching completed and patient verbalized understanding. 12:06:14 Family in patients room. 12:06:15 Patient NPO since Midnight. 12:06:16 Is the patient allergic to Iodine/contrast media? No. 12:06:19 Is patient on blood thinner?Yes 12:06:25 Oxygen 2 l/min etCO2 Nasal cannula was administered by Juan Aguiar CRNA; used for procedure; 12:06:32 ACC The patient was administered the following blood thiners within the last 24 hours: Xarelto 12:06:34 Patient diabetic? No. 12:06:36 Previous problem with sedation/anesthesia? No ? 12:06:37 Snore? Yes 12:06:38 Refer to Anesthesia Notes for Sedation Medications was administered by Juan Aguiar CRNA; for sedation; 12:06:38 Sleep apnea? Yes 12:06:39 Deviated septum? No 12:06:39 Opens mouth fully? Yes 12:06:40 Sticks out tongue? Yes 12:06:41 Airway obstruction? No ? 12:06:53 Dentures? No ? 12:07:07 Patient pain scale 0/10 ?. 12:07:14 IV patent on arrival in right forearm with 0.9% NaCl at [facility]. 12:07:16 Lab results completed and on chart. 12:07:23 Alarms reviewed by Dawson Ellis 12:07:25 --------ALL STOP TIME OUT------ 12:07:26 Final Timeout: patient, procedure, and site verified with staff and physician. All members of the team are in agreement. 12:07:40 Fire Safety Assessment: C--Open oxygen or nitrous oxide is being used. 12:07:43 Physical assessment completed. ASA score P 3 - A patient with severe systemic disease as per Sarwat Salas MD. 12:07:47 Sedation plan: TIVA Medication:Propofol 12:08:02 Procedure started. 12:08:03 Full Disclosure recording started 12:08:04 Quick combo pads placed on patients chest and back. 12:08:08 Defibrillator synced and charged to 275 Joules. 12:08:10 Shock delivered. 12:08:24 Patient cardioverted to sinus rhythm . 12:08:28 Procedure ended.(Physican Out) 12:10:24 Fluoroscopy time 00.00 minutes. :: Fluoroscopy dose: 0 mGy 12::26 Flurop Dose total: 0 12:10:29 Contrast amount:Isovue 300 0ml. 12:10:50 Post Procedure Pulses reassessed and unchanged 12:10:57 Post-procedure physical assessment completed. ASA score P 3 - A patient with severe systemic disease as per Sarwat Salas MD. 12:11:09 Post procedure rhythm: sinus rhythm 12:11:11 Estimated blood loss: 0 ml 12:11:12 Post procedure instruction explained to patient.Patient verbalizes understanding. 12:13:02 Patient needs reinforcement of post procedure teaching. 12:13:07 Procedure Complication : No complications 12:17:16 Vital chart was stopped 12:17:16 See physician's report for complete and final results. 12:17:18 Report given to Pre/Post Procedure Room. 12:17:21 Patient transfered to Pre/Post Procedure Room with Stretcher. 12:18:26 Procedure ended. 12:18:26 Full Disclosure recording stopped 12:18:30 End room use (Document Last) Device Usage Item Manufacture Quantity Catalog Hospital Part Current Minimal Lot# / Name Number Charge Number Stock [facility] al# Code [facility] 800razors 1 [id number] Combo Signature Audit [place] Stage Time Signature Unsigned Intra-Procedure 10/17/2018 Damir Huerta 12:18:47 PM RT(R) Signatures Monitor : Damir Huerta RT Signature : Date : Time : [address] [address]
[2018-10-17] MEDS ORDERED: FLOMAX0.4 MG PO (10:16)
[2018-10-17] MEDS ORDERED: ATARAX 25 MG TA25 MG PO (10:18)
[2018-10-17] MEDS ORDERED: PROSCAR5 MG PO (10:18)
[2018-10-17] MEDS ORDERED: CRESTOR40 MG PO (10:19)
[2018-10-17] MEDS ORDERED: NEURONTIN 300300 MG PO (10:19)
[2018-10-17] MEDS ORDERED: ALDACTONE25 MG PO (10:20)
[2018-10-17 10:25] VITALS: BP 131/74; Ht 182.9 cm; Wt 108.6 kg
[2018-10-17 10:36] LABS: BASOPHILS 0.5 % (0-2); EOSINOPHILS 7.3 % (0-7); HEMATOCRIT 35.2 % (42.0-54.0); HEMOGLOBIN 11.3 g/dL (13.5-17.5); IMMATURE GRANULOCYTES 0.5 % (0-5); LYMPHOCYTES 40.8 % (15-50); MCH 27.5 pg (26.0-34.0); MCHC 32.1 g/dL (31.0-37.0); MCV 85.6 fL (80.0-100.0); MONOCYTES 9.2 % (2-11); NEUTROPHILS 41.7 % (40-80); RBC 4.11 10x6/uL (4.20-6.10); RDW 18.5 % (11.5-14.5); WBC 9.7 10x3/uL (4.8-10.8)
[2018-10-17 10:41] LABS: PLATELET COUNT 182 10x3/uL (130-400)
[2018-10-17 10:46] LABS: ANION GAP 15.4 mmol/L (8-16); CALCIUM 9.4 mg/dL (8.5-10.1); CARBON DIOXIDE 27.4 mmol/L (21.0-32.0); CREATININE - SERUM 2.7 mg/dL (0.6-1.3); POTASSIUM - SERUM 5.8 mmol/L (3.5-5.1)
[2018-10-17 10:50] LABS: INR 2.51 (0.85-1.17); PROTIME 26.3 SECONDS (11.6-15.0)
--- NOTE | 2018-10-17 11:23 | NUR ---
UNABLE TO GIVE CONTRAST ON MRI BRAIN DUE TO GFR OF ONLY [address] BROWNLEE. SPOKE WITH CHAS RUIZ AND WITH ADILSON BROWN.
--- NOTE | 2018-10-17 12:40 | NUR ---
PATIENT AWAKE, EATING SANDWICH AND DRINKING COKE. VSS ON ROOM AIR. NO C/O PAIN, NUMBNESS, OR TINGLING. FAMILY AT BEDSIDE.
--- NOTE | 2018-10-17 13:10 | NUR ---
IV REMOVED. EDUCATION REGARDING DISCHARGE INSTRUCTIONS GIVEN TO PATIENT AND FAMILY, PATIENT VOICES UNDERSTANDING. VSS ON ROOM AIR.
--- NOTE | 2018-10-17 13:20 | NUR ---
PATIENT VOIDED WITHOUT DIFFICULTY. PATIENT TRANSPORTED VIA WHEELCHAIR TO CAR WITH FAMILY DRIVING, ALL BELONGINGS WITH PATIENT.
--- NOTE | 2018-10-21 10:55 | OP ---
PATIENT NAME: SATYA STROUD MEDICAL RECORD: [id number] :36 LOCATION:[facility] ADMISSION DATE: SURGEON: ROMEO KAT MD DATE OF OPERATION: 10/17/2018 PROCEDURE: DC cardioversion. INDICATION: Atrial fibrillation. PROCEDURE IN DETAIL: IV conscious sedation was per anesthesia. Continuous heart rate, O2 saturation, blood pressure monitoring all undertaken, all of which remained stable. He received 1 shock at 275 joules restoring sinus rhythm. OVERALL IMPRESSION: Successful DC cardioversion from atrial fibrillation to sinus rhythm. TRANSINT:[id number] Voice Confirmation ID: [id number] DOCUMENT ID: [id number] ROMEO KAT MD at 1055 CC: [id number] DICTATION DATE: 10/17/18 1210 SENIOR MEDIA DIRECTOR: 10/17/18 1315 DEP CLI 10/17/[address] [address]
== END 2018-10-17 13:20 ==
LOC: D.CATH 09:46
PROVIDERS: ATTEND Internal Medicine Interventional Cardiology
DX: I48.91 Unspecified atrial fibrillation (principal); Z01.812 Encounter for preprocedural laboratory examination